=== PATIENT | female | born 1940 | race Caucasian/White ===

== ENCOUNTER 2018-03-10 12:25 | Emergency (ER) | payer MEDICARE ==
[~2018-03-10] VITALS: Ht 165.1 cm; Wt 81.6 kg
[~2018-03-10 12:25] MED LIST: LIPITOR20 MG PO; LOTREL 10-20 M1 EACH PO; PLAVIX75 MG PO
[2018-03-10] MEDS ORDERED: LIDOCAINE 1% W/EPINEPHRINE 20 ML VIAL INJ ONE (13:15)
[2018-03-10] MEDS ORDERED: LIDOCAINE 1% W/EPINEPHRINE 20 ML VIAL INJ SCH (13:30)
[2018-03-10] MEDS ORDERED: TETANUS/DIPHTHERIA TOX ADULT 0.5 ML SYR IM ONE (14:30)
[2018-03-10 15:02] VITALS: BP 132/55
== END 2018-03-10 14:50 | disposition home or self-care (01) ==
LOC: ER 12:25
DX: S81.811A Laceration without foreign body, right lower leg, initial encounter (principal); W45.8XXA Other foreign body or object entering through skin, initial encounter; Y92.512 Supermarket, store or market as the place of occurrence of the external cause
CPT/HCPCS: 90471; 90714; 99283

== ENCOUNTER 2020-06-11 17:36 | Observation (INO) | payer MEDICARE, OTHER ==
[~2020-06-11] VITALS: Ht 157.5 cm; Wt 81.8 kg
[2020-06-11] MEDS ORDERED: FUROSEMIDE INJ 10 MG/ML 4 ML VIAL IV ONE (18:00)
[2020-06-11] MEDS ORDERED: NITROGLYCERIN 2% OINT 1 GM PKT TOP ONE (18:00)
[2020-06-11] MEDS ORDERED: NITROGLYCERIN 2% OINT 1 GM PKT ONE (18:11)
--- NOTE | 2020-06-11 18:21 | Emergency Department Note ---
History of Present Illnes History of Present Illness Chief Complaint: General Medicine Complaints History of Present Illness This is a 80 year old female hx htn, carotid surgeries her for SOB and blood pressure was high. SHE HAS BEEN SEEING BY DR SHER PCP & DR MICHELLE SALES REPRESENTATIVE [employer], BP MEDS CHANGED APPROX 2 WEEKS AGO, CAUSING ISSUES W/ BP. HER BLOO PRESSURE WAS LOW AND BALANCE WEIGHER @ PCP OFFICE SAID TO HOLD WHEN BP LOW. PT. SAYS SHE DIDN'T TAKE BP MEDS FOR 5 DAYS. TODAY SHE STOOD UP AND HEAD FELT DIZZY. SHE STATES WENT TO PHARMACY AND HAD BP CHECKED, AND IT WAS 202/108 Historian: Patient Arrival Mode: Car Wood Die Maker Required: No Radiation: Reports non-radiation Onset quality: gradual Duration (how long): day(s) Timing of current episode: intermittent Progression: waxing and waning Relieving factors: none Exacerbating factors: none Associated symptoms: Reports denies other symptoms Treatments prior to arrival: none Past Medical/Family History Physician Review I have reviewed the patient's past medical and family history. Any updates have been documented here. Past Medical History Recent Fever: No Clinical Suspicion of Infectio: No New/Unexplained Change in Ment: No Past Medical History: Hypertension Other Medical History: CHOLESTEROL Past Surgical History: Hysterectomy Other Surgery: L CAROTID Social History Smoking Cessation: Never Smoker Alcohol Use: None Any Illegal Drug Use: No Other Last Tetanus: UNK Any Pre-Existing Lines (PICC,: No Review of Systems Review of Systems Constitutional: Reports no symptoms EENTM: Reports no symptoms Cardiovascular: Reports edema Respiratory: Reports dyspnea Gastrointestinal: Reports no symptoms Genitourinary: Reports no symptoms Musculoskeletal: Reports no symptoms Integumentary: Reports ecchymosis, Reports other (SWELLING) Neurological: Reports no symptoms, Reports as per HPI Psychological: Reports no symptoms Endocrine: Reports no symptoms Hematological/Lymphatic: Reports no symptoms Physical Exam Related Data Allergies: Coded Allergies: aspirin (Verified Allergy, Intermediate, 07/17/17) codeine (Verified Allergy, Unknown, 07/17/17) Triage Vital Signs Vital Signs Date Time Temp Pulse Resp B/P (MAP) Pulse Ox O2 Delivery O2 Flow Rate FiO2 06/11/20 17:45 98.5 68 16 222/64 97 Room Air Vital signs reviewed: Yes (bp is high) Physical Exam CONSTITUTIONAL Constitutional: Present well-developed, Present well-nourished HENT HENT: Present normocephalic, Present atraumatic, Present oropharynx clear/moist, Present nose normal HENT L/R: Present left ext ear normal, Present right ext ear normal EYES Eyes: Reports PERRL, Reports conjunctivae normal NECK Neck: Present ROM normal PULMONARY Pulmonary: Present effort normal, Present breath sounds normal CARDIOVASCULAR Cardiovascular: Present regular rhythm, Present heart sounds normal, Present capillary refill normal, Present normal rate GASTROINTESTINAL Abdominal: Present soft, Present nontender, Present bowel sounds normal GENITOURINARY Genitourinary: Present exam deferred SKIN Skin: Present warm, Present dry MUSCULOSKELETAL Musculoskeletal: Present ROM normal NEUROLOGICAL Neurological: Present alert, Present oriented x 3, Present no gross motor or sensory deficits PSYCHOLOGICAL Psychological: Present mood/affect normal, Present judgement normal Results Laboratory Lab results reviewed: Yes Laboratory comments BNP 163 slightly high Imaging Imaging results reviewed: Yes Imaging Comments chest xray normal Procedures 12 Lead ECG Interpretation ECG Interpretation : ECG: ECG 1 Wood Die Maker: Interpreted by ED physician Date: Jun 11, 2020 Time: 18:01 Prior ECG tracings: reviewed Rhythm: sinus rhythm Ectopy: atrial premature contractions Rate: normal QRS axis: left Q waves: II, III, aVF Clinical Impression: dysrhythmia - atrial Additional Comments 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 Reassessment Reassessment doing better, BP 147/68 Assessment & Plan Final Impression: (1) Congestive heart failure (2) EKG abnormalities (3) Hypertensive urgency Depart Disposition: ADMITTED Last Vital Signs Date Time Temp Pulse Resp B/P (MAP) Pulse Ox O2 Delivery O2 Flow Rate FiO2 06/11/20 17:45 98.5 68 16 222/64 97 Room Air Home Meds Reported Medications Amlodipine Besylate/Benazepril (LOTREL 10-20 MG CAPSULE) 1 Each Capsule, 1 TAB PO DAILY 11/25/13 Clopidogrel Bisulfate* (PLAVIX) 75 Mg Tablet, 75 MG PO DAILY 11/25/13 Atorvastatin Calcium (LIPITOR) 20 Mg Tablet, 20 MG PO QHS 11/25/13 Medications in the ED Nitroglycerin 1 gm ONCE ONCE TOP ; Start 06/11/20 at 18:00; Stop 06/11/20 at 18:01 Furosemide 40 mg ONCE ONCE IV ; Start 06/11/20 at 18:00; Stop 06/11/20 at 18:01; Status UNV Physician Attestation Provider Attestation case discussed with Dr Sher, ARSALAN Denise MD Jun 11, 2020 18:21
--- NOTE | 2020-06-11 18:42 | Diagnostic Imaging Report ---
EXAMINATION: CXR 1 [facility] INDICATION: Hypertension ^SOB ^[id number] ^1836 COMPARISON: None FINDINGS: TUBES and LINES: None. LUNGS: Lungs are well inflated. Lungs are clear. There is no evidence of pneumonia or pulmonary edema. PLEURA: No pleural effusion or pneumothorax. HEART AND MEDIASTINUM: The cardiomediastinal silhouette is unremarkable. BONES AND SOFT TISSUES: No acute osseous lesion. Soft tissues are unremarkable. UPPER ABDOMEN: No free air under the diaphragm. IMPRESSION: No acute thoracic abnormality. Signed by: Dr. Carlos Eduardo Rutherford M.D. on 06/11/2020 6:39 PM
[2020-06-11] MEDS ORDERED: ACETAMINOPHEN 325 MG TAB PO PRN (19:15)
[2020-06-11] MEDS ORDERED: DIPHENHYDRAMINE HCL INJ 50 MG/ML VIAL IV PRN (19:15)
[2020-06-11] MEDS ORDERED: ZOLPIDEM TARTRATE 5 MG TAB PO PRN (19:15)
[2020-06-11] MEDS ORDERED: SODIUM CHLORIDE FLUSH 10 ML SYR INJ PRN (19:15)
[2020-06-11] MEDS ORDERED: ONDANSETRON HCL INJ 2MG/ML 2ML 2 MG/ML VIAL IV PRN (19:15)
[2020-06-11] MEDS ORDERED: ENALAPRILAT IV INJ 1.25 MG/ML VIAL IV PRN (19:15)
[2020-06-11] MEDS ORDERED: POTASSIUM CHLORIDE 20 MEQ TAB CR PO STA (19:26)
[2020-06-11] MEDS ORDERED: FAMOTIDINE 20 MG TAB ONE (19:56)
[2020-06-11] MEDS ORDERED: METOPROLOL TARTRATE 50 MG TAB ONE (19:57)
[2020-06-11] MEDS ORDERED: POTASSIUM CHLORIDE 20 MEQ TAB CR PO ONE (19:57)
[2020-06-11] MEDS: FAMOTIDINE 20 MG TAB PO SCH (20:04)
[2020-06-11] MEDS: METOPROLOL TARTRATE 25 MG TAB PO SCH (20:04)
--- NOTE | 2020-06-11 20:07 | NUR ---
EMS CALLED FOR TRANSPORT 45 MIN ETA
[2020-06-11 20:51] VITALS: BP 131/67
--- NOTE | 2020-06-11 20:51 | NUR ---
PT ARRIVED BY EMS STRETCHER TO ROOM 102. PT IS AAOX3, RR EVEN AND NON-LABORED, ON ROOM AIR. NO S/SX OF DISTRESS NOTED. PT REPORTS FEELING BETTER SINCE ADMISSION. ORIENTED PT TO HOSPITAL ROOM, CALL LIGHT, PHONE, BED CONTROLS, LIGHTS AND HOSPITAL POLICY. LEFT PT LAYING SEMI FOWLERS IN BED, BED IN LOW LOCKED POSITION, SIDE RAILS UPX2, CALL LIGHT AND PHONE WITH IN REACH.
--- NOTE | 2020-06-11 21:10 | NUR ---
TELEMETRY BOX #30 APPLIED TO PATIENT FOR CONTINUOUS TELE MONITORING.
[2020-06-11 21:50] VITALS: BP 131/67
[2020-06-11] MEDS ORDERED: VALSARTAN160 MG PO (21:58)
[2020-06-11] MEDS ORDERED: ESIDRIX25 MG PO (21:58)
[2020-06-12] VITALS: BP 123/63
[2020-06-12 03:36] LABS: CREATINE KINASE MB 2.1 ng/mL (0-5.0)
[2020-06-12 03:50] LABS: ANION GAP 12.7 mmol/L (8-16); CALCIUM 8.5 mg/dL (8.4-10.2); CREATININE, SERUM 0.92 mg/dL (0.57-1.11); POTASSIUM 3.7 mmol/L (3.5-5.1)
[2020-06-12 04:00] VITALS: BP 112/56
--- NOTE | 2020-06-12 06:07 | NUR ---
CONSULTATION CALLED TO MD MICHELLE ANSWERING SERVICE. LEFT MESSAGE. WAITING FOR CALLBACK.
--- NOTE | 2020-06-12 07:00 | NUR ---
RECEIVED PATIENT RESTING IN BED NO S/S OF DISTRESS. BED LOW, WHEELS LOCKED, SIDE RAILS X2. CALL LIGHT IN REACH WILL CONTINUE TO MONITOR PATIENT.
[2020-06-12 08:31] VITALS: BP 101/53
[2020-06-12] MEDS: METOPROLOL TARTRATE 25 MG TAB PO SCH (08:37)
[2020-06-12] MEDS: FAMOTIDINE 20 MG TAB PO SCH (08:37)
[2020-06-12] MEDS: FUROSEMIDE INJ 10 MG/ML 4 ML VIAL IV SCH ×2 (08:37→16:35)
[2020-06-12] MEDS ORDERED: HYDROCHLOROTHIAZIDE 25 MG TAB PO SCH (09:00)
[2020-06-12] MEDS ORDERED: ASPIRIN 81 MG ENTERIC COATED PO SCH (09:00)
[2020-06-12] MEDS ORDERED: VALSARTAN 160 MG TAB PO SCH (09:00)
[2020-06-12] MEDS ORDERED: LISINOPRIL 10 MG TAB PO SCH (09:00)
[2020-06-12 09:25] VITALS: BP 101/53
[2020-06-12 11:37] LABS: CREATINE KINASE MB 1.9 ng/mL (0-5.0)
[2020-06-12 11:40] VITALS: BP 119/54
[2020-06-12 16:42] VITALS: BP 128/53
--- NOTE | 2020-06-12 17:20 | NUR ---
REMOVED PATIENTS IV. CATHETER TIP INTACT AND PRESSURE DRESSING APPLIED.
[2020-06-12] MEDS ORDERED: LASIX40 MG PO (17:30)
[2020-06-12] MEDS ORDERED: LISINOPRIL10 MG PO (17:30)
[2020-06-12] MEDS ORDERED: METOPROLOL SUCC25 MG PO (17:30)
--- NOTE | 2020-06-12 17:45 | NUR ---
PATIENT DISCHARGED FROM FACILITY. PATIENT GATHERED ALL PERSONAL BELONGINGS, DISCHARGE INSTRUCTIONS, AND FOLLOW UP INFORMATION. LEFT UNIT IN WHEELCHAIR AND WENT HOME VIA PRIVATE AUTO.
[2020-06-12] MEDS ORDERED: CLOPIDOGREL BISULFATE 75 MG TAB PO SCH (21:00)
[2020-06-12] MEDS ORDERED: ATORVASTATIN 20 MG TAB PO SCH (21:00)
== END 2020-06-12 17:47 | disposition home or self-care (01) ==
LOC: FSED 18:05 → ERHOLD 19:07 → MED/SURG 20:54
PROVIDERS: ADMIT Internal Medicine; ATTEND Internal Medicine
DX: I16.0 Hypertensive urgency (principal); I49.5 Sick sinus syndrome; E78.5 Hyperlipidemia, unspecified; Z88.5 Allergy status to narcotic agent; Z88.8 Allergy status to other drugs, medicaments and biological substances; Z11.59 Encounter for screening for other viral diseases; Z82.49 Family history of ischemic heart disease and other diseases of the circulatory system
CPT/HCPCS: 36415; 71045; 80048; 80053; 82550; 82553 ×2; 82948; 83880; 84484 ×2; 85025; 85610; 93005; 93306; 99284; G0378 ×2; J1940 ×2; U0002

== ENCOUNTER 2020-07-10 13:33 | Emergency (ER) | payer MEDICARE, OTHER ==
[~2020-07-10] VITALS: Ht 157.5 cm; Wt 74.8 kg
[~2020-07-10 13:33] MED LIST changes: +ESIDRIX25 MG PO; +LASIX40 MG PO; +LISINOPRIL10 MG PO; +METOPROLOL SUCC25 MG PO; +VALSARTAN160 MG PO
--- NOTE | 2020-07-10 14:26 | Emergency Department Note ---
History of Present Illnes History of Present Illness Chief Complaint: Extremity Trauma/Pain History of Present Illness This is a 80 year old female, with a history of hypertension, hyperlipidemia, and PAD who presents for evaluation of a large skin tear on the left lower extremity. Patient states that she was walking outside, tending to her pool, when she thinks that she stepped on a water hose that was on the ground, stumbled, and her left lower extremity brushed up against the corner of a brick planter. Patient denies falling, or any other injury. She states that she took Lasix earlier today, due to leg swelling, and she states that "she feels like the Lasix makes her weak in the knees," and that that may have contributed to her fall. She denies any dizziness, palpitations, chest pain, shortness of breath, or syncopal symptoms. There was copious amount of bleeding, as patient does take Plavix due to a history of carotid angioplasty. They were able to stop the blood applying pressure to the area. Historian: Patient Arrival Mode: Car Gas Cutter Required: No Onset (how long ago): minute(s) (30) Location: left lower calf Quality: "painful" Radiation: Reports non-radiation Severity: moderate Onset quality: sudden Duration (how long): hour(s) (30 min) Timing of current episode: constant Progression: unchanged Chronicity: new Context: Reports trauma/injury; Denies recent illness, Denies recent surgery Relieving factors: none Exacerbating factors: none Associated symptoms: Reports denies other symptoms; Denies chest pain, Denies fever/chills, Denies nausea/vomiting, Denies shortness of breath, Denies syncope, Denies weakness Treatments prior to arrival: none Past Medical/Family History Physician Review I have reviewed the patient's past medical and family history. Any updates have been documented here. Past Medical History Recent Fever: No Clinical Suspicion of Infectio: No New/Unexplained Change in Ment: No Past Medical History: Hypertension Other Medical History: HIGH CHOLESTEROL Past Surgical History: Hysterectomy, Cataract Removal Other Surgery: (L) CAROTID [place] Social History Smoking Cessation: Never Smoker Counseling Performed: No Alcohol Use: None Any Illegal Drug Use: No TB Exposure/Symptoms: No Physically hurt or threatened: No Family History Family history of heart diseas: No Other Last Tetanus: UNK Any Pre-Existing Lines (PICC,: No Review of Systems Review of Systems Constitutional: Denies chills, Denies fever, Denies malaise, Denies weakness EENTM: Reports no symptoms Cardiovascular: Denies chest pain, Denies palpitations Respiratory: Reports no symptoms Gastrointestinal: Denies nausea, Denies vomiting Musculoskeletal: Reports no symptoms Integumentary: Reports as per HPI Neurological: Denies numbness, Denies paresthesia, Denies tingling, Denies weakness Psychological: Reports no symptoms Hematological/Lymphatic: Reports easy bleeding (on Plavix), Reports easy bruising Review of other systems: All other systems negative Physical Exam Related Data Allergies: Coded Allergies: aspirin (Verified Allergy, Intermediate, 07/17/17) codeine (Verified Allergy, Unknown, 07/17/17) Triage Vital Signs Vital Signs Date Time Temp Pulse Resp B/P (MAP) Pulse Ox O2 Delivery O2 Flow Rate FiO2 07/10/20 13:33 97.8 86 18 140/66 99 Room Air Vital signs reviewed: Yes Physical Exam CONSTITUTIONAL Constitutional: Present well-developed, Present well-nourished HENT HENT: Present normocephalic, Present atraumatic, Present oropharynx clear/moist, Present nose normal HENT L/R: Present left ext ear normal, Present right ext ear normal EYES Eyes: Reports PERRL, Reports conjunctivae normal NECK Neck: Present ROM normal PULMONARY Pulmonary: Present effort normal, Present breath sounds normal CARDIOVASCULAR Cardiovascular: Present regular rhythm, Present heart sounds normal, Present capillary refill normal, Present normal rate GASTROINTESTINAL GENITOURINARY SKIN Skin: Present warm, Present bruising, Present other (large area of skin avulsion, 11.5 cm x 6.5 cm on the left, anterior, lateral calf, with partial skin flap present and pulled back to the left side of the wound; wound is superficial;); Absent rash MUSCULOSKELETAL Musculoskeletal: Present ROM normal, Present edema (trace pedal edema) NEUROLOGICAL Neurological: Present alert, Present oriented x 3, Present no gross motor or sensory deficits; Absent cranial nerve deficit, Absent abnormal coordination, Absent abnormal gait, Absent weakness PSYCHOLOGICAL Psychological: Present mood/affect normal, Present judgement normal Assessment & Plan Medical Decision Making MDM - For Dr. Zamorano tomorrow, to recheck the wound on her left lower extremity, discuss continued use of Lasix, and for a referral to wound care. - If you're unable to get into Dr. Zamorano tomorrow, gently clean the wound of the left lower extremity with antibacterial soap and water, dried thoroughly, and then apply [id number] antibiotic ointment such as bacitracin or triple antibiotic ointment, followed by a nonstick pad, and secure with gauze. This should be repeated at least once daily until seen by Dr. Zamorano. - Watch closely for any signs of infection including redness around the wound, purulent drainage, increased tenderness, increased pain or foul odor. - He may take extra strength Tylenol 500 mg2 tabs every 4 hours as needed for pain. Reassessment Reassessment - Wound cleaned thoroughly using a Chlorhexadene sponge, and attempts were made to approximate skin flap, but there is a significant amount of skin missing and full approximation is not possible. There was a small amount of oozing, but no active bleeding. Bacitracin ointment was placed on wound, covered with Adaptic, then gauze and then secured with Coban. Expert wound care performed by Tish Forde, FELICITA. Assessment & Plan Final Impression: (1) Avulsion of skin of right lower leg (2) Hypertension (3) Hyperlipidemia (4) PAD (peripheral artery disease) Depart Disposition: HOME, SELF-CARE Last Vital Signs Date Time Temp Pulse Resp B/P (MAP) Pulse Ox O2 Delivery O2 Flow Rate FiO2 07/10/20 13:33 97.8 86 18 140/66 99 Room Air Home Meds Reported Medications Furosemide (LASIX) 40 Mg Tablet, 40 MG PO DAILY, #30 TAB 06/12/20 Metoprolol Succinate (METOPROLOL SUCCINATE) 25 Mg Tab.er.24h, 25 MG PO DAILY 06/12/20 Lisinopril (LISINOPRIL) 10 Mg Tablet, 10 MG PO DAILY, #30 TAB 06/12/20 Clopidogrel Bisulfate* (PLAVIX) 75 Mg Tablet, 75 MG PO HS 11/25/13 Atorvastatin Calcium (LIPITOR) 20 Mg Tablet, 20 MG PO HS 11/25/13 Medications in the ED Neomycin/ Polymyxin/ Bacitracin 3.6 gm STK-MED ONCE .ROUTE ; Start 07/10/20 at 14:29; Stop 07/10/20 at 14:24; Status DC BONIFACIO HAMMOND MD Jul 10, 2020:26
[2020-07-10] MEDS ORDERED: NEOMYCIN/POLYMYX/BACITR OINT 0.9 GM PKT ONE (14:29)
[2020-07-10] MEDS ORDERED: ACETAMINOPHEN 325 MG TAB PO ONE (14:45)
--- OUTSIDE RECORDS SUMMARY | 2020-07-10 14:57 | XMS REPORT | Continuity of Care Document ---
Author Author [facility] t Organization [facility] Address [address] [place] [address] Phone Unavailable Care Team Providers Care Straw Hat Brim Cutter Operator Name Role Phone NIKKY ANGULO, MD [place] PCP Kelly SPRAGUE Unavailable Payers Payer Name Policy Type Policy Number Effective Date Expiration Date [facility]uss [facility] [id number] 2019 00:00:00 [facility] Problems Condition Name Condition Details Condition Category Status Onset Date Resolution Date Last Treatment Date Treating Clinician Comments Source Congestive heart failure Problem Active [facility] Hypertensive urgency Problem Active [facility] Abnormal electrocardiography Problem Active [facility] Allergies, Adverse Reactions, Alerts Allergy Name Allergy Type Status Severity Reaction(s) Onset Date Inacti ve Date Treating Clinician Comments Source Codeine Allergy to substance Active 2017-07-17 00:00:00 [facility] Aspirin Allergy to substance Active Moderate 2017-07-17 00:00:00 [facility] Social History Social Habit Start Date Stop Date Quantity Comments Source Sex Assigned At 1940 00:00:00 1940 00:00:00 Female [facility] Medications Ordered Medication Name Filled Medication Name Start Date Stop Da te Current Medication? Ordering Clinician Indication Dosage Frequency Signature (SIG) Comments Components Source Atorvastatin Calcium (Lipitor) 20 Mg TABLET Atorvastat in Calcium (Lipitor) 20 Mg TABLET Yes 20 Bedtime [facility] Clopidogrel Bisulfate (Plavix) 75 Mg TABLET Clopidogre l Bisulfate (Plavix) 75 Mg TABLET Yes 75 Bedtime [facility] Furosemide (Lasix) 40 Mg TABLET Furosemide (Lasix) 40 Mg TABLET Yes 40 Daily [facility] Lisinopril Lisinopril Yes 10 Daily [facility] Metoprolol Succinate Metoprolol Succinate Yes 25 Daily [facility] Hydrochlorothiazide (Esidrix*) 25 Mg TAB Hydrochloroth iazide (Esidrix*) 25 Mg TAB 2020-06-12 00:00:00 No 25 Daily [facility] Valsartan Valsartan 2020-06-12 00:00:00 No 160 Daily [facility] Amlodipine Besylate/Benazepril (Lotrel 10-20 Mg Capsul e) 1 Each CAPSULE Amlodipine Besylate/Benazepril (Lotrel 10-20 Mg Capsule) 1 Each CAPSULE 2020-06-11 00:00:00 No 1 Daily [facility] Vital Signs Vital Name Observation Time Observation Value Comments Source Body Temperature 2020-06-12 16:42:00 97.7 [degF] [facility] Weight 2020-06-11 21:50:00 180.38 [lb_av] [facility] BMI (Body Mass Index) 2020-06-11 21:50:00 33.0 kg/m2 [facility] Procedures This patient has no known procedures. Plan of Care Planned Activity Planned Date Details Comments Source Instructions Hypertension [facility] Encounters Start Date/Time End Date/Time Encounter Type Admission Type [facility] Care Department Encounter ID Source 2020-06-11 19:07:00 2020-06-12 17:47:00 Discharged Inpatient (obs) 1 ARSALAN SPRAGUE [facility] [id number] [facility] 2018-03-10 12:25:00 2018-03-10 12:25:00 Registered Emergency Room [facility] [id number] [facility] 2017-07-17 20:24:00 2017-07-17 21:31:00 Departed Emergency Room [facility] [id number] [facility] Results Test Description Test Time Test Comments Results Result Comments Source Capillary blood glucose measurement by glucometer (mas s/volume) 2020-06-12 15:26:00 Test Item Bedside Glucose (test code = 55333-6) 87 70-120 Meter ID: [id number] creatine kinase measurement (enzymatic activity/volume)2020-06-12 10:58:00* Test Item Value Reference Range Interpretation Comments Creatine Kinase (test code = 2157-6) 48 29-168 [facility] creatine kinase MB measurement (mass/volume)2020-06-12 10:58:00* Test Item Value Reference Range Interpretation Comments Creatine Kinase MB (test code = 43519-5) 1.90 0-5.0 [facility] by highly sensitive enzyme [id number] 10:58:00* Test Item Value Reference Range Interpretation Comments Troponin I (test code = 95275-1) 0.027 0-0.300 [facility] sodium measurement (moles/volume)2020-06-12 03:10:00* Test Item Value Reference Range Interpretation Comments Sodium Level (test code = 2951-2) 143 136-145 [facility] potassium measurement (moles/volume)2020-06-12 03:10:00* Test Item Value Reference Range Interpretation Comments Potassium Level (test code = 2823-3) 3.7 3.5-5.1 [facility] chloride measurement (moles/volume)2020-06-12 03:10:00* Test Item Value Reference Range Interpretation Comments Chloride Level (test code = 2075-0) 107 98-107 [facility] carbon dioxide, total measurement (moles/volume)2020-06-12 03:10:00* Test Item Value Reference Range Interpretation Comments Carbon Dioxide Level (test code = 2028-9) 27 22-29 [facility] anion [id number] 03:10:00* Test Item Value Reference Range Interpretation Comments Anion Gap (test code = 43046-2) 12.7 8-16 [facility] urea nitrogen measurement (mass/volume)2020-06-12 03:10:00* Test Item Value Reference Range Interpretation Comments Blood Urea Nitrogen (test code = 3094-0) 14 7-26 [facility] creatinine measurement (mass/volume)2020-06-12 03:10:00* Test Item Value Reference Range Interpretation Comments Creatinine (test code = 2160-0) 0.92 0.57-1.11 [facility] urea nitrogen/creatinine mass [id number] 03:10:00* Test Item Value Reference Range Interpretation Comments BUN/Creatinine Ratio (test code = 3097-3) 15 6-25 [facility] Center[facility] glomerular filtration rate (GFR) [id number] 03:10:00* Test Item Value Reference Range Interpretation Comments Estimat Glomerular Filtration Rate (test code = 577905281) 59 >60 Ranges were taken from the National Kidney Disease Education Program and the [facility] literature.Reference ranges:60 or greater: Jbmjcw98-09 ( for 3 consecutive months): Chronic kidney disease 15 or less: Kidney failurePampa [facility] Medical CenterGlucose [id number] 03:10:00* Test Item Value Reference Range Interpretation Comments Glucose Level (test code = QMF5030) 100 74-118 [facility] calcium measurement (mass/volume)2020-06-12 03:10:00* Test Item Value Reference Range Interpretation Comments Calcium Level (test code = 75979-4) 8.5 8.4-10.2 [facility] - [id number] 18:37:00 [facility] [address] [address] Patient Name: HELENA CROW MR #: [id number] : 1940 Age/Sex: 80/F Req #: [id number] Adm Physician: Ordered by: ARSALAN SPRAGUE MD Report #: [id number] [facility] Room/Bed: Procedure: [id number] HOPD/CXR 1 VE W - HOPD Exam Date: 06/11/20 Exam Time: 1835 REPORT STATUS: Signed EXAMINATION: CXR 1 VEW - HOPD INDICATION: Hypertension SOB [id number] COMPARISON: None FINDINGS: TUBES and LINES: None. TRISTEN GS: Lungs are well inflated. Lungs are clear. There is no evidence of pneu monia or pulmonary edema. PLEURA: No pleural effusion or pneumothorax. HEART AND MEDIASTINUM: The cardiomediastinal silhouette is unremarkable. BONES AND SOFT TISSUES: No acute osseous lesion. Soft tissues are unrem arkable. UPPER ABDOMEN: No free air under the diaphragm. IMPRESSIO N: No acute thoracic abnormality. Signed by: Dr. Carlos Eduardo Rutherford M.D. on 06/11/2020 6:39 PM Dictated By: CARLOS EDUARDO RUTHERFORD MD, MD Electronically Cindy d By: CARLOS EDUARDO RUTHERFORD MD, MD on 06/11/201838 Transcribed By: MITESH on 06/11/201838 COPY TO: ARSALAN SPRAGUE MD
[2020-07-10] MEDS ORDERED: BACITRACIN ZINC 0.9GM TP ONE (15:00)
[2020-07-10] MEDS ORDERED: ACETAMINOPHEN 325 MG TAB ONE (15:02)
== END 2020-07-10 15:19 | disposition home or self-care (01) ==
LOC: FSED 13:33
DX: S81.812A Laceration without foreign body, left lower leg, initial encounter (principal); W22.09XA Striking against other stationary object, initial encounter; Y92.007 Garden or yard of unspecified non-institutional (private) residence as the place of occurrence of the external cause; I10 Essential (primary) hypertension; I73.9 Peripheral vascular disease, unspecified; E78.5 Hyperlipidemia, unspecified; Z79.01 Long term (current) use of anticoagulants
CPT/HCPCS: 99283

== ENCOUNTER 2024-06-28 22:21 | Emergency (ER) | payer MEDICARE ==
[~2024-06-28] VITALS: Ht 157.5 cm; Wt 74.8 kg
[2024-06-28 22:39] VITALS: PULSE 88; RESP 16; TEMP 97.8; O2SAT 100
[2024-06-28] MEDS ORDERED: CEPHALEXIN500 MG PO (22:42)
[2024-06-28] MEDS: CEPHALEXIN MONOHYDRATE 250 MG CAP PO ONE (22:45)
== END 2024-06-28 22:49 | disposition home or self-care (01) ==
LOC: FSED 22:25
DX: L03.113 Cellulitis of right upper limb (principal); I10 Essential (primary) hypertension; E78.00 Pure hypercholesterolemia, unspecified
CPT/HCPCS: 99282